=== PATIENT | male | born 1960 | race Caucasian/White ===

== ENCOUNTER 2018-05-19 19:02 | Inpatient (IN) | payer MEDICAID ==
[~2018-05-19] VITALS: Ht 185.4 cm; Wt 81.8 kg
[~2018-05-19 19:02] MED LIST: RISP0.5T74 PO
[2018-05-19 19:51] LABS: INR 1.2 INR; PARTIAL THROMBOPLASTIN TIME 29 SECONDS (22-32)
[2018-05-19 19:54] LABS: BASOPHILS # (AUTO) 0.2 X10'3 (0-0.2); BASOPHILS % (AUTO) 1.2 % (0-1); EOSINOPHILS # (AUTO) 0.1 X10'3 (0-0.9); EOSINOPHILS % (AUTO) 0.5 % (0-6); HEMATOCRIT 36.4 % (42.0-52.0); HEMOGLOBIN 12.6 g/dl (14.0-17.9); LYMPHOCYTES # (AUTO) 1.8 X10'3 (1.1-4.8); LYMPHOCYTES % (AUTO) 13.1 % (21-51); MEAN CORPUSCULAR HEMOGLOBIN 30.9 PG (27.0-31.0); MEAN CORPUSCULAR HGB CONC 34.6 % (33.0-36.5); MEAN CORPUSCULAR VOLUME 89.4 FL (78-98); MEAN PLATELET VOLUME 7.8 FL (7.4-10.4); MONOCYTES # (AUTO) 1.9 X10'3 (0-0.9); MONOCYTES % (AUTO) 13.9 % (2-12); NEUTROPHILS # (AUTO) 9.5 X10'3 (1.8-7.7); NEUTROPHILS % (AUTO) 71.3 % (42-75); PLATELET COUNT 342 X10'3 (140-440); RED BLOOD COUNT 4.07 X10'6 (4.70-6.10); RED CELL DISTRIBUTION WIDTH 13.4 % (11.5-14.5); WHITE BLOOD COUNT 13.4 X10'3 (4.5-11.0)
[2018-05-19 19:57] LABS: ALANINE AMINOTRANSFERASE 21 U/L (12-78); ALBUMIN 3.1 G/DL (3.4-5.0); ALBUMIN/GLOBULIN RATIO 0.7 (1.1-1.5); ALKALINE PHOSPHATASE 63 IU/L (46-116); ANION GAP 13 (8-16); ASPARTATE AMINO TRANSFERASE 20 U/L (10-37); BILIRUBIN,TOTAL 0.4 MG/DL (0.1-1.0); BLOOD UREA NITROGEN 15 MG/DL (7-18); BUN/CREATININE RATIO 16.5 (5.4-32.0); CALCIUM 9.1 MG/DL (8.5-10.1); CHLORIDE 97 MMOL/L (99-107); CREATININE 0.91 MG/DL (0.60-1.10); GLUCOSE 94 MG/DL (70-104); POTASSIUM 3.4 MMOL/L (3.5-5.1); SODIUM 136 MMOL/L (135-145); TOTAL CARBON DIOXIDE 26.4 MMOL/L (24-32); TOTAL PROTEIN 7.8 G/DL (6.4-8.2); eGFR 86 ML/MIN
[2018-05-19] MEDS ORDERED: piperacillin/tazo 3.375gm/50ml 50 ML IV ONE (20:25)
[2018-05-19] MEDS ORDERED: NO HOME MEDS (20:51)
[2018-05-19] MEDS ORDERED: temazepam 15mg capsule PO PRN (21:00)
[2018-05-19] MEDS ORDERED: potassium Cl 20 mEq SR tablet PO PRN ×2 (21:40)
[2018-05-19] MEDS ORDERED: naloxone 0.4 mg/ml inj IV PRN (21:40)
[2018-05-19] MEDS ORDERED: diphenhydrAMINE 25mg capsule PO PRN (21:40)
[2018-05-19] MEDS ORDERED: CADD PCA waste documentation MC PRN (21:40)
[2018-05-19] MEDS ORDERED: potassium Cl 40MEQ/NS 500ml 500 ML IV PRN ×2 (21:40)
[2018-05-19] MEDS ORDERED: HYDROmorphone inj. 0.5 MG/0.5 ML DISP.SYRIN IV PRN ×2 (21:40)
[2018-05-19] MEDS ORDERED: mag hydrox/Alum hydrox/simeth 30ml oral suspension PO PRN (21:40)
[2018-05-19] MEDS ORDERED: magnesium hydroxide 30ml (MOM) UD suspension PO PRN (21:40)
[2018-05-19] MEDS ORDERED: HYDROcodone/acetaminophen 10/325mg tab PO PRN (21:40)
[2018-05-19] MEDS ORDERED: ondansetron/PF 4mg/2ml inj IV PRN (21:40)
[2018-05-19] MEDS ORDERED: bisacodyl 10mg suppository rectal RC PRN (21:40)
[2018-05-19] MEDS ORDERED: acetaminophen 325mg tablet PO PRN ×2 (21:40)
[2018-05-19] MEDS ORDERED: diphenhydrAMINE 50 mg/ml inj IV PRN (21:40)
[2018-05-19] MEDS ORDERED: morphine 4 MG/ML inj SYRINge IV PRN ×2 (21:40)
[2018-05-19] MEDS ORDERED: metoclopramide 5 mg/ml inj IV PRN (21:40)
[2018-05-19 22:11] LABS: HEMOGLOBIN A1C 5.8 % (4.5-6.2)
[2018-05-19 22:18] LABS: MAGNESIUM 1.3 MG/DL (1.5-2.4); PHOSPHORUS 4.3 MG/DL (2.3-4.5)
[2018-05-19] MEDS: nicotine 21mg patch - 24 hr TD SCH (22:19)
[2018-05-19] MEDS: potassium Cl 20mEq in NS 1,000 ML IV SCH (22:19)
[2018-05-19 23:00] VITALS: BP 118/68
[2018-05-20] MEDS: piperacillin/tazo 4.5gm/100ml 100 ML IV SCH ×3 (00:13→15:40)
[2018-05-20] MEDS: HYDROcodone/acetaminophen 5mg/325mg tablet PO PRN (00:22)
[2018-05-20] MEDS ORDERED: magnesium 4gm in 100ml NS 100 ML IV PRN (06:15)
[2018-05-20] MEDS ORDERED: magnesium 1gm/100ml D5W IVPB 100 ML IV PRN (06:15)
[2018-05-20 06:21] LABS: BASOPHILS # (AUTO) 0.1 X10'3 (0-0.2); BASOPHILS % (AUTO) 0.8 % (0-1); EOSINOPHILS # (AUTO) 0.3 X10'3 (0-0.9); EOSINOPHILS % (AUTO) 2.3 % (0-6); HEMATOCRIT 34.8 % (42.0-52.0); HEMOGLOBIN 11.9 g/dl (14.0-17.9); LYMPHOCYTES # (AUTO) 2.1 X10'3 (1.1-4.8); MEAN CORPUSCULAR HEMOGLOBIN 30.7 PG (27.0-31.0); MEAN CORPUSCULAR HGB CONC 34.3 % (33.0-36.5); MEAN CORPUSCULAR VOLUME 89.4 FL (78-98); MEAN PLATELET VOLUME 7.7 FL (7.4-10.4); MONOCYTES # (AUTO) 2.1 X10'3 (0-0.9); MONOCYTES % (AUTO) 15.6 % (2-12); NEUTROPHILS # (AUTO) 8.7 X10'3 (1.8-7.7); NEUTROPHILS % (AUTO) 65.3 % (42-75); PLATELET COUNT 297 X10'3 (140-440); RED BLOOD COUNT 3.89 X10'6 (4.70-6.10); RED CELL DISTRIBUTION WIDTH 13.4 % (11.5-14.5); WHITE BLOOD COUNT 13.4 X10'3 (4.5-11.0)
[2018-05-20 06:31] LABS: ALANINE AMINOTRANSFERASE 21 U/L (12-78); ALBUMIN 2.5 G/DL (3.4-5.0); ALBUMIN/GLOBULIN RATIO 0.6 (1.1-1.5); ALKALINE PHOSPHATASE 52 IU/L (46-116); ANION GAP 6 (8-16); ASPARTATE AMINO TRANSFERASE 13 U/L (10-37); BILIRUBIN,TOTAL 0.6 MG/DL (0.1-1.0); BLOOD UREA NITROGEN 10 MG/DL (7-18); BUN/CREATININE RATIO 12.7 (5.4-32.0); CALCIUM 8.7 MG/DL (8.5-10.1); CHLORIDE 103 MMOL/L (99-107); CREATININE 0.79 MG/DL (0.60-1.10); GLUCOSE 109 MG/DL (70-104); POTASSIUM 4.4 MMOL/L (3.5-5.1); SODIUM 137 MMOL/L (135-145); TOTAL CARBON DIOXIDE 28.1 MMOL/L (24-32); TOTAL PROTEIN 6.6 G/DL (6.4-8.2); eGFR > 90 ML/MIN
[2018-05-20 07:03] VITALS: BP 116/64
[2018-05-20 07:24] LABS: PLATELET ESTIMATE NORMAL; TOTAL CELLS COUNTED 100
[2018-05-20] MEDS: pantoprazole 40mg Tablet.DR PO SCH (07:25)
[2018-05-20] MEDS: docusate sod 100mg capsule PO SCH ×2 (07:28→20:00)
[2018-05-20] MEDS: K and/or MAG REPLACEMENT MC SCH (07:28)
[2018-05-20] MEDS: nicotine 21mg patch - 24 hr TD SCH (07:28)
[2018-05-20] MEDS: potassium Cl 20mEq in NS 1,000 ML IV SCH ×2 (07:39→17:28)
[2018-05-20] MEDS ORDERED: vancomycin/NS 1 GM ADD-VANTAGE 250 ML IV SCH (08:00)
[2018-05-20] MEDS: vancomycin inj 1,250 MG in normal saline 250ml IV soln 250 ML IV SCH ×2 (09:36→17:28)
[2018-05-20] MEDS ORDERED: magnesium Cl slow-release 64mg tablet PO PRN (11:35)
[2018-05-20 11:36] VITALS: BP 89/49
[2018-05-20 14:57] LABS: CLARITY,URINE CLEAR (Clear); COLOR,URINE YELLOW (Yellow); GLUCOSE, URINE NEGATIVE (Neg); KETONES,URINE NEGATIVE (Neg); LEUKOCYTE ESTERASE ,URINE NEGATIVE (Neg); NITRITES, URINE NEGATIVE (Neg); OCCULT BLOOD,URINE NEGATIVE (Neg); PROTEIN,URINE NEGATIVE (Neg)
[2018-05-20 14:58] LABS: UA COLLECTION TYPE VOIDED
[2018-05-20 15:03] LABS: URINE AMPHETAMINE SCREEN NEGATIVE (Neg); URINE BARBITUATE SCREEN NEGATIVE (Neg); URINE BENZODIAZEPINES SCREEN NEGATIVE (Neg); URINE CANNABINOID SCREEN NEGATIVE (Neg); URINE COCAINE SCREEN NEGATIVE (Neg); URINE METHADONE SCREEN NEGATIVE (Neg); URINE OPIATE SCREEN POSITIVE (Neg); URINE PHENCYCLIDINE SCREEN NEGATIVE (Neg)
[2018-05-20] MEDS: magnesium Cl slow-release 64mg tablet PO PRN (16:03)
[2018-05-20 20:00] VITALS: BP 114/57
[2018-05-20] MEDS: heparin, porcine 5000 units/ml vial SQ SCH (20:43)
[2018-05-20] MEDS: lactobacillus rhamnosus 10,000 MMU CELLS/CAPSULE PO SCH (20:43)
[2018-05-21] VITALS: BP 99/62
[2018-05-21] MEDS: piperacillin/tazo 4.5gm/100ml 100 ML IV SCH ×4 (00:09→23:44)
[2018-05-21] MEDS: vancomycin inj 1,250 MG in normal saline 250ml IV soln 250 ML IV SCH ×2 (01:47→10:18)
[2018-05-21] MEDS: potassium Cl 20mEq in NS 1,000 ML IV SCH ×3 (03:39→23:39)
[2018-05-21] MEDS: magnesium Cl slow-release 64mg tablet PO PRN ×2 (04:28→07:52)
[2018-05-21 05:13] LABS: BASOPHILS # (AUTO) 0.1 X10'3 (0-0.2); BASOPHILS % (AUTO) 0.6 % (0-1); EOSINOPHILS # (AUTO) 0.4 X10'3 (0-0.9); EOSINOPHILS % (AUTO) 3.3 % (0-6); HEMATOCRIT 35.2 % (42.0-52.0); HEMOGLOBIN 12.1 g/dl (14.0-17.9); LYMPHOCYTES # (AUTO) 1.7 X10'3 (1.1-4.8); LYMPHOCYTES % (AUTO) 13.7 % (21-51); MEAN CORPUSCULAR HEMOGLOBIN 30.6 PG (27.0-31.0); MEAN CORPUSCULAR HGB CONC 34.3 % (33.0-36.5); MEAN CORPUSCULAR VOLUME 89.2 FL (78-98); MEAN PLATELET VOLUME 7.4 FL (7.4-10.4); MONOCYTES # (AUTO) 1.4 X10'3 (0-0.9); MONOCYTES % (AUTO) 10.9 % (2-12); NEUTROPHILS # (AUTO) 8.9 X10'3 (1.8-7.7); NEUTROPHILS % (AUTO) 71.5 % (42-75); PLATELET COUNT 313 X10'3 (140-440); RED BLOOD COUNT 3.95 X10'6 (4.70-6.10); RED CELL DISTRIBUTION WIDTH 13.6 % (11.5-14.5); WHITE BLOOD COUNT 12.4 X10'3 (4.5-11.0)
[2018-05-21 05:36] LABS: ALANINE AMINOTRANSFERASE 16 U/L (12-78); ALBUMIN 2.3 G/DL (3.4-5.0); ALBUMIN/GLOBULIN RATIO 0.5 (1.1-1.5); ALKALINE PHOSPHATASE 48 IU/L (46-116); ANION GAP 8 (8-16); ASPARTATE AMINO TRANSFERASE 12 U/L (10-37); BILIRUBIN,TOTAL 0.3 MG/DL (0.1-1.0); BLOOD UREA NITROGEN 8 MG/DL (7-18); BUN/CREATININE RATIO 12.1 (5.4-32.0); CALCIUM 8.3 MG/DL (8.5-10.1); CHLORIDE 103 MMOL/L (99-107); CREATININE 0.66 MG/DL (0.60-1.10); GLUCOSE 117 MG/DL (70-104); MAGNESIUM 1.4 MG/DL (1.5-2.4); POTASSIUM 3.8 MMOL/L (3.5-5.1); SODIUM 138 MMOL/L (135-145); TOTAL CARBON DIOXIDE 26.7 MMOL/L (24-32); TOTAL PROTEIN 6.5 G/DL (6.4-8.2); eGFR > 90 ML/MIN
[2018-05-21] MEDS: lactobacillus rhamnosus 10,000 MMU CELLS/CAPSULE PO SCH ×2 (07:52→20:10)
[2018-05-21] MEDS: nicotine 21mg patch - 24 hr TD SCH (07:52)
[2018-05-21] MEDS: docusate sod 100mg capsule PO SCH ×2 (07:52→20:00)
[2018-05-21] MEDS: pantoprazole 40mg Tablet.DR PO SCH (07:52)
[2018-05-21] MEDS: heparin, porcine 5000 units/ml vial SQ SCH ×2 (07:53→20:09)
[2018-05-21] MEDS: K and/or MAG REPLACEMENT MC SCH (08:01)
[2018-05-21] MEDS ORDERED: VANCOMYCIN LEVEL IV NR (08:30)
[2018-05-21 10:53] VITALS: BP 110/62
[2018-05-21 12:25] VITALS: BP 117/68
[2018-05-21] MEDS ORDERED: gadopentetate dimeglumine 7.5 MMOL/15 ML syringe ONE (16:16)
[2018-05-21 18:00] VITALS: BP 132/76
[2018-05-22] VITALS: BP 114/65
[2018-05-22 05:09] LABS: BASOPHILS # (AUTO) 0.1 X10'3 (0-0.2); BASOPHILS % (AUTO) 0.4 % (0-1); EOSINOPHILS # (AUTO) 0.3 X10'3 (0-0.9); EOSINOPHILS % (AUTO) 2.6 % (0-6); HEMATOCRIT 35.4 % (42.0-52.0); HEMOGLOBIN 12.3 g/dl (14.0-17.9); LYMPHOCYTES % (AUTO) 16.5 % (21-51); MEAN CORPUSCULAR HEMOGLOBIN 30.9 PG (27.0-31.0); MEAN CORPUSCULAR HGB CONC 34.6 % (33.0-36.5); MEAN CORPUSCULAR VOLUME 89.1 FL (78-98); MEAN PLATELET VOLUME 7.4 FL (7.4-10.4); MONOCYTES # (AUTO) 1.3 X10'3 (0-0.9); MONOCYTES % (AUTO) 10.4 % (2-12); NEUTROPHILS # (AUTO) 8.5 X10'3 (1.8-7.7); NEUTROPHILS % (AUTO) 70.1 % (42-75); PLATELET COUNT 348 X10'3 (140-440); RED BLOOD COUNT 3.98 X10'6 (4.70-6.10); WHITE BLOOD COUNT 12.2 X10'3 (4.5-11.0)
[2018-05-22 05:30] LABS: ALANINE AMINOTRANSFERASE 12 U/L (12-78); ALBUMIN 2.3 G/DL (3.4-5.0); ALBUMIN/GLOBULIN RATIO 0.5 (1.1-1.5); ALKALINE PHOSPHATASE 46 IU/L (46-116); ANION GAP 8 (8-16); ASPARTATE AMINO TRANSFERASE 11 U/L (10-37); BILIRUBIN,TOTAL 0.3 MG/DL (0.1-1.0); BLOOD UREA NITROGEN 6 MG/DL (7-18); CALCIUM 8.9 MG/DL (8.5-10.1); CHLORIDE 104 MMOL/L (99-107); CREATININE 0.67 MG/DL (0.60-1.10); GLUCOSE 101 MG/DL (70-104); MAGNESIUM 1.5 MG/DL (1.5-2.4); POTASSIUM 3.9 MMOL/L (3.5-5.1); SODIUM 140 MMOL/L (135-145); TOTAL CARBON DIOXIDE 27.8 MMOL/L (24-32); TOTAL PROTEIN 6.7 G/DL (6.4-8.2); eGFR > 90 ML/MIN
[2018-05-22] MEDS: lactobacillus rhamnosus 10,000 MMU CELLS/CAPSULE PO SCH ×2 (07:35→19:36)
[2018-05-22] MEDS: pantoprazole 40mg Tablet.DR PO SCH (07:35)
[2018-05-22] MEDS: nicotine 21mg patch - 24 hr TD SCH (07:35)
[2018-05-22] MEDS: piperacillin/tazo 4.5gm/100ml 100 ML IV SCH ×3 (07:35→23:38)
[2018-05-22 07:48] VITALS: BP 113/68
[2018-05-22] MEDS: docusate sod 100mg capsule PO SCH ×2 (08:00→19:37)
[2018-05-22] MEDS: heparin, porcine 5000 units/ml vial SQ SCH ×2 (08:00→19:37)
[2018-05-22] MEDS: K and/or MAG REPLACEMENT MC SCH (08:00)
[2018-05-22] MEDS: potassium Cl 20mEq in NS 1,000 ML IV SCH ×2 (09:39→19:36)
[2018-05-22] MEDS ORDERED: VANCOMYCIN LEVEL IV NR (16:30)
[2018-05-22 18:00] VITALS: BP 125/70
[2018-05-23] VITALS: BP 116/68
[2018-05-23 01:13] LABS: ALANINE AMINOTRANSFERASE 13 U/L (12-78); ALBUMIN 2.2 G/DL (3.4-5.0); ALBUMIN/GLOBULIN RATIO 0.5 (1.1-1.5); ALKALINE PHOSPHATASE 47 IU/L (46-116); ANION GAP 6 (8-16); ASPARTATE AMINO TRANSFERASE 11 U/L (10-37); BILIRUBIN,TOTAL 0.2 MG/DL (0.1-1.0); BLOOD UREA NITROGEN 8 MG/DL (7-18); BUN/CREATININE RATIO 12.3 (5.4-32.0); CALCIUM 8.6 MG/DL (8.5-10.1); CHLORIDE 105 MMOL/L (99-107); CREATININE 0.65 MG/DL (0.60-1.10); GLUCOSE 143 MG/DL (70-104); MAGNESIUM 1.5 MG/DL (1.5-2.4); POTASSIUM 3.5 MMOL/L (3.5-5.1); SODIUM 140 MMOL/L (135-145); TOTAL CARBON DIOXIDE 28.8 MMOL/L (24-32); TOTAL PROTEIN 6.4 G/DL (6.4-8.2); eGFR > 90 ML/MIN
[2018-05-23 01:17] LABS: VANCOMYCIN,TROUGH 21.3 UG/ML (6.0-14.0)
[2018-05-23 02:04] LABS: BASOPHILS % (AUTO) 0.3 % (0-1); EOSINOPHILS # (AUTO) 0.5 X10'3 (0-0.9); EOSINOPHILS % (AUTO) 4.2 % (0-6); HEMATOCRIT 33.8 % (42.0-52.0); HEMOGLOBIN 11.6 g/dl (14.0-17.9); LYMPHOCYTES # (AUTO) 2.1 X10'3 (1.1-4.8); LYMPHOCYTES % (AUTO) 19.3 % (21-51); MEAN CORPUSCULAR HEMOGLOBIN 31.3 PG (27.0-31.0); MEAN CORPUSCULAR HGB CONC 34.4 % (33.0-36.5); MEAN PLATELET VOLUME 7.8 FL (7.4-10.4); MONOCYTES # (AUTO) 1.1 X10'3 (0-0.9); MONOCYTES % (AUTO) 10.2 % (2-12); NEUTROPHILS # (AUTO) 7.1 X10'3 (1.8-7.7); PLATELET COUNT 354 X10'3 (140-440); RED BLOOD COUNT 3.71 X10'6 (4.70-6.10); RED CELL DISTRIBUTION WIDTH 13.4 % (11.5-14.5); WHITE BLOOD COUNT 10.8 X10'3 (4.5-11.0)
[2018-05-23] MEDS: potassium Cl 20mEq in NS 1,000 ML IV SCH ×2 (04:35→15:39)
[2018-05-23 07:00] VITALS: BP 124/48
[2018-05-23] MEDS: heparin, porcine 5000 units/ml vial SQ SCH ×2 (08:00→20:32)
[2018-05-23] MEDS: K and/or MAG REPLACEMENT MC SCH (08:00)
[2018-05-23] MEDS: docusate sod 100mg capsule PO SCH ×2 (09:05→20:00)
[2018-05-23] MEDS: lactobacillus rhamnosus 10,000 MMU CELLS/CAPSULE PO SCH ×2 (09:05→20:31)
[2018-05-23] MEDS: pantoprazole 40mg Tablet.DR PO SCH (09:05)
[2018-05-23] MEDS: nicotine 21mg patch - 24 hr TD SCH (09:06)
[2018-05-23] MEDS: piperacillin/tazo 4.5gm/100ml 100 ML IV SCH ×3 (09:06→23:43)
[2018-05-23] MEDS: vancomycin inj 1,250 MG in normal saline 250ml IV soln 250 ML IV SCH ×2 (09:54→17:43)
[2018-05-23 12:00] VITALS: BP 175/68
[2018-05-23 18:30] VITALS: BP 143/71
[2018-05-23] MEDS: HYDROcodone/acetaminophen 5mg/325mg tablet PO PRN (20:31)
[2018-05-23 23:00] VITALS: BP 115/74
[2018-05-24] MEDS: vancomycin inj 1,250 MG in normal saline 250ml IV soln 250 ML IV SCH ×2 (00:53→09:00)
[2018-05-24 05:21] LABS: BASOPHILS % (AUTO) 0.4 % (0-1); EOSINOPHILS # (AUTO) 0.5 X10'3 (0-0.9); EOSINOPHILS % (AUTO) 4.2 % (0-6); HEMATOCRIT 36.8 % (42.0-52.0); HEMOGLOBIN 12.4 g/dl (14.0-17.9); LYMPHOCYTES # (AUTO) 1.9 X10'3 (1.1-4.8); LYMPHOCYTES % (AUTO) 17.9 % (21-51); MEAN CORPUSCULAR HEMOGLOBIN 30.2 PG (27.0-31.0); MEAN CORPUSCULAR HGB CONC 33.8 % (33.0-36.5); MEAN CORPUSCULAR VOLUME 89.5 FL (78-98); MEAN PLATELET VOLUME 7.4 FL (7.4-10.4); MONOCYTES # (AUTO) 1.3 X10'3 (0-0.9); NEUTROPHILS # (AUTO) 7.1 X10'3 (1.8-7.7); NEUTROPHILS % (AUTO) 65.5 % (42-75); PLATELET COUNT 392 X10'3 (140-440); RED BLOOD COUNT 4.11 X10'6 (4.70-6.10); RED CELL DISTRIBUTION WIDTH 13.5 % (11.5-14.5); WHITE BLOOD COUNT 10.9 X10'3 (4.5-11.0)
[2018-05-24] MEDS: potassium Cl 20mEq in NS 1,000 ML IV SCH ×3 (05:26→19:53)
[2018-05-24] MEDS: HYDROcodone/acetaminophen 5mg/325mg tablet PO PRN ×2 (05:35→19:53)
[2018-05-24 05:49] LABS: ALANINE AMINOTRANSFERASE 26 U/L (12-78); ALBUMIN 2.4 G/DL (3.4-5.0); ALBUMIN/GLOBULIN RATIO 0.5 (1.1-1.5); ALKALINE PHOSPHATASE 44 IU/L (46-116); ANION GAP 7 (8-16); ASPARTATE AMINO TRANSFERASE 16 U/L (10-37); BILIRUBIN,TOTAL 0.3 MG/DL (0.1-1.0); BLOOD UREA NITROGEN 10 MG/DL (7-18); BUN/CREATININE RATIO 13.5 (5.4-32.0); CALCIUM 8.9 MG/DL (8.5-10.1); CHLORIDE 105 MMOL/L (99-107); CREATININE 0.74 MG/DL (0.60-1.10); GLUCOSE 95 MG/DL (70-104); MAGNESIUM 1.5 MG/DL (1.5-2.4); POTASSIUM 3.8 MMOL/L (3.5-5.1); SODIUM 141 MMOL/L (135-145); TOTAL CARBON DIOXIDE 28.7 MMOL/L (24-32); TOTAL PROTEIN 6.9 G/DL (6.4-8.2); eGFR > 90 ML/MIN
[2018-05-24] MEDS: pantoprazole 40mg Tablet.DR PO SCH (07:14)
[2018-05-24] MEDS: piperacillin/tazo 4.5gm/100ml 100 ML IV SCH (07:14)
[2018-05-24] MEDS: lactobacillus rhamnosus 10,000 MMU CELLS/CAPSULE PO SCH ×2 (07:15→21:06)
[2018-05-24] MEDS: heparin, porcine 5000 units/ml vial SQ SCH ×2 (07:15→21:03)
[2018-05-24] MEDS: docusate sod 100mg capsule PO SCH ×2 (07:15→20:00)
[2018-05-24] MEDS: nicotine 21mg patch - 24 hr TD SCH (07:16)
[2018-05-24 08:00] VITALS: BP 120/71
[2018-05-24] MEDS: K and/or MAG REPLACEMENT MC SCH (08:00)
[2018-05-24] MEDS ORDERED: VANCOMYCIN LEVEL IV ONE (08:30)
[2018-05-24] MEDS ORDERED: vancomycin/NS 1 GM ADD-VANTAGE 250 ML IV SCH (09:04)
[2018-05-24 11:00] VITALS: BP 140/76
[2018-05-24 13:49] LABS: HIV ANTIBODY 1&2 RAPID NON-REACTIVE (Neg)
[2018-05-24 20:00] VITALS: BP 119/69
[2018-05-25] VITALS: BP 109/62
[2018-05-25 07:00] VITALS: BP 128/72
[2018-05-25] MEDS: potassium Cl 20mEq in NS 1,000 ML IV SCH (07:39)
[2018-05-25] MEDS: pantoprazole 40mg Tablet.DR PO SCH (08:00)
[2018-05-25] MEDS ORDERED: CefTRIAXone 2gm/D5W 50ml 50 ML IV SCH (08:00)
[2018-05-25] MEDS: docusate sod 100mg capsule PO SCH (08:00)
[2018-05-25] MEDS: K and/or MAG REPLACEMENT MC SCH (08:00)
[2018-05-25] MEDS: nicotine 21mg patch - 24 hr TD SCH (08:01)
[2018-05-25] MEDS: lactobacillus rhamnosus 10,000 MMU CELLS/CAPSULE PO SCH (08:02)
[2018-05-25] MEDS: heparin, porcine 5000 units/ml vial SQ SCH (08:03)
[2018-05-25] MEDS ORDERED: VANCOMYCIN LEVEL IV ONE (08:30)
[2018-05-25 11:00] VITALS: BP 126/68
[2018-05-26 08:48] LABS: HBSAG SCREEN Negative (Negative); HEP A AB, IGM Negative (Negative); HEP B CORE AB, IGM Negative (Negative); HEPATITIS C ANTIBODY <0.1 s/co ratio (0.0-0.9)
== END 2018-05-25 14:47 | disposition left against medical advice (07) | DRG 344 ==
LOC: ER 19:03 → ED HOLD 21:39 → EDBEDREQ 22:27 → SUR 3N 22:45
PROVIDERS: ADMIT Family Medicine; ATTEND Family Medicine
DX: M86.172 Other acute osteomyelitis, left ankle and foot (principal); L03.116 Cellulitis of left lower limb; E83.42 Hypomagnesemia; F43.10 Post-traumatic stress disorder, unspecified; L02.612 Cutaneous abscess of left foot; F10.10 Alcohol abuse, uncomplicated; Z53.21 Procedure and treatment not carried out due to patient leaving prior to being seen by health care provider; B96.1 Klebsiella pneumoniae [K. pneumoniae] as the cause of diseases classified elsewhere; B96.89 Other specified bacterial agents as the cause of diseases classified elsewhere; B95.61 Methicillin susceptible Staphylococcus aureus infection as the cause of diseases classified elsewhere; E87.6 Hypokalemia; F12.10 Cannabis abuse, uncomplicated; Z59.0 Homelessness; Z56.0 Unemployment, unspecified; Z91.19 Patient's noncompliance with other medical treatment and regimen; Z89.421 Acquired absence of other right toe(s); Z71.41 Alcohol abuse counseling and surveillance of alcoholic; Z71.6 Tobacco abuse counseling; Z72.0 Tobacco use
CPT/HCPCS: 36415; 73630; 80053; 80074; 80202; 80305; 81003; 83036; 83605; 83735; 83880; 84100; 84145; 85025; 85610; 85651; 85730; 86703; 87040; 87070; 87077; 87186; 93005; 96365; 99285; A4649; A6196; A6209; A6446; A6449; A9579; J0696; J1644; J2543; J3370; J7030

== ENCOUNTER 2019-01-15 17:53 | Inpatient (IN) | payer MEDICAID ==
[~2019-01-15] VITALS: Ht 185.4 cm; Wt 112.0 kg
[2019-01-15] MEDS ORDERED: acetaminophen 325mg tablet PO STA (18:49)
[2019-01-15] MEDS ORDERED: normal saline 1000ml 1,000 ML IV ONE ×3 (19:05→19:20)
[2019-01-15 19:58] LABS: BASOPHILS # (AUTO) 0.1 X10'3 (0-0.2); BASOPHILS % (AUTO) 0.3 % (0-1); EOSINOPHILS % (AUTO) 0 % (0-6); HEMATOCRIT 30.7 % (42.0-52.0); HEMOGLOBIN 10.3 g/dl (14.0-17.9); LYMPHOCYTES # (AUTO) 0.9 X10'3 (1.1-4.8); LYMPHOCYTES % (AUTO) 3.6 % (21-51); MEAN CORPUSCULAR HEMOGLOBIN 28.8 PG (27.0-31.0); MEAN CORPUSCULAR HGB CONC 33.4 g/dL (33.0-36.5); MEAN CORPUSCULAR VOLUME 86.1 FL (78-98); MEAN PLATELET VOLUME 7.1 FL (7.4-10.4); MONOCYTES # (AUTO) 1.5 X10'3 (0-0.9); MONOCYTES % (AUTO) 6.2 % (2-12); NEUTROPHILS % (AUTO) 89.9 % (42-75); PLATELET COUNT 483 X10'3 (140-440); RED BLOOD COUNT 3.57 X10'6 (4.70-6.10); RED CELL DISTRIBUTION WIDTH 13.5 % (11.5-14.5); WHITE BLOOD COUNT 24.5 X10'3 (4.5-11.0)
[2019-01-15 20:01] LABS: INR 1.5 INR; PARTIAL THROMBOPLASTIN TIME 29 SECONDS (22-32); PROTHROMBIN TIME 14.8 SECONDS (9.0-12.0)
[2019-01-15 20:02] LABS: ALANINE AMINOTRANSFERASE 25 U/L (12-78); ALBUMIN 1.7 G/DL (3.4-5.0); ALBUMIN/GLOBULIN RATIO 0.3 (1.1-1.5); ALKALINE PHOSPHATASE 75 IU/L (46-116); ANION GAP 10 (8-16); ASPARTATE AMINO TRANSFERASE 38 U/L (10-37); BILIRUBIN,TOTAL 0.4 MG/DL (0.1-1.0); BLOOD UREA NITROGEN 24 MG/DL (7-18); BUN/CREATININE RATIO 29.3 (5.4-32.0); CALCIUM 8.1 MG/DL (8.5-10.1); CHLORIDE 104 MMOL/L (99-107); CREATININE 0.82 MG/DL (0.60-1.10); GLUCOSE 120 MG/DL (70-104); POTASSIUM 3.8 MMOL/L (3.5-5.1); SODIUM 138 MMOL/L (135-145); TOTAL CARBON DIOXIDE 24.5 MMOL/L (24-32); TOTAL PROTEIN 6.8 G/DL (6.4-8.2); eGFR > 90 ML/MIN
[2019-01-15] MEDS ORDERED: vancomycin/NS 1 GM ADD-VANTAGE 250 ML IV ONE (20:25)
[2019-01-15] MEDS ORDERED: piperacillin/tazo 3.375gm/50ml 50 ML IV ONE (20:25)
[2019-01-15] MEDS ORDERED: temazepam 15mg capsule PO PRN (21:00)
[2019-01-15] MEDS ORDERED: haloperidol 5mg tablet PO PRN (21:25)
[2019-01-15] MEDS ORDERED: magnesium hydroxide 30ml (MOM) UD suspension PO PRN (21:25)
[2019-01-15] MEDS ORDERED: haloperidol lactate 5mg/ml inj IM PRN (21:25)
[2019-01-15] MEDS ORDERED: ondansetron/PF 4mg/2ml inj IV PRN (21:25)
[2019-01-15] MEDS ORDERED: mag hydrox/Alum hydrox/simeth 30ml oral suspension PO PRN (21:25)
[2019-01-15] MEDS ORDERED: LORazepam 2 mg/ml vial IV PRN (21:25)
[2019-01-15] MEDS ORDERED: acetaminophen 325mg tablet PO PRN ×2 (21:25)
[2019-01-15] MEDS ORDERED: LORazepam 1 MG tablet PO PRN (21:25)
[2019-01-15] MEDS ORDERED: iohexol 300mg/ml 100ml inj. ONE (21:30)
[2019-01-15] MEDS: normal saline 1000ml 1,000 ML IV SCH (22:21)
[2019-01-16] VITALS (17 sets, daily range): BP systolic 86–104; BP diastolic 44–58
[2019-01-16 00:46] LABS: PLATELET ESTIMATE INCREASED; TOTAL CELLS COUNTED 100
[2019-01-16] MEDS: piperacillin/tazo 4.5gm/100ml 100 ML IV SCH ×3 (04:18→19:41)
[2019-01-16 06:13] LABS: CLARITY,URINE CLEAR (Clear); GLUCOSE, URINE NEGATIVE (Neg); KETONES,URINE NEGATIVE (Neg); LEUKOCYTE ESTERASE ,URINE NEGATIVE (Neg); NITRITES, URINE NEGATIVE (Neg); OCCULT BLOOD,URINE MODERATE (Neg); PH,URINE 5.5 (4.8-8.0); PROTEIN,URINE 30 mg/dl (Neg)
[2019-01-16 06:19] LABS: COLOR,URINE DARK YELLOW (Yellow); UA COLLECTION TYPE CLN CATCH MIDSTREAM
[2019-01-16 06:21] LABS: BACTERIA,URINE FEW /HPF (Neg); MUCUS STRANDS FEW /LPF (Neg); RBC,URINE 0-2 /HPF (0-2); SQUAMOUS EPITHELIAL CELL,UR FEW /LPF (FEW); WBC,URINE 0-4 /HPF (0-4)
--- NOTE | 2019-01-16 07:45 | NUR ---
RECEIVED TELEPHONE REPORT FRJUAN JACKSON RN. RECEIVED PT FROM ER AARON MAYER. AVEL PAIN EXCEPT LEVEL"3-4" BILAT FEET. 2 RN SKIN CHECK DONE, PICTURES TAKEN. DENIES SOS. DIZZINESS. NS AT 100ML/HOUR BEGAN ALONG WITH VANCOMYCIN ABX.
[2019-01-16] MEDS: enoxaparin 40mg/0.4ml syringe SUBCUT SCH (08:00)
[2019-01-16] MEDS ORDERED: vancomycin/NS 1 GM ADD-VANTAGE 250 ML IV SCH (08:00)
[2019-01-16] MEDS: normal saline 1000ml 1,000 ML IV SCH ×2 (08:01→17:25)
[2019-01-16] MEDS ORDERED: ringers solution, lacted 1,000 ML IV SCH (09:22)
[2019-01-16] MEDS ORDERED: ondansetron/PF 4mg/2ml inj IV PRN (09:25)
[2019-01-16] MEDS ORDERED: proCHLORperazine 10 MG/2 ml inj IV PRN (09:25)
[2019-01-16] MEDS ORDERED: meperidine/PF 25mg/ml syringe IV PRN ×3 (09:25)
[2019-01-16] MEDS ORDERED: morphine 4 MG/ML inj SYRINge IV PRN ×2 (09:25)
[2019-01-16 09:30] LABS: BASOPHILS # (AUTO) 0.1 X10'3 (0-0.2); BASOPHILS % (AUTO) 0.5 % (0-1); EOSINOPHILS # (AUTO) 0.1 X10'3 (0-0.9); EOSINOPHILS % (AUTO) 0.3 % (0-6); HEMATOCRIT 32.2 % (42.0-52.0); HEMOGLOBIN 10.6 g/dl (14.0-17.9); LYMPHOCYTES # (AUTO) 1.3 X10'3 (1.1-4.8); LYMPHOCYTES % (AUTO) 5.7 % (21-51); MEAN CORPUSCULAR HEMOGLOBIN 28.6 PG (27.0-31.0); MEAN CORPUSCULAR HGB CONC 32.9 g/dL (33.0-36.5); MEAN CORPUSCULAR VOLUME 86.8 FL (78-98); MEAN PLATELET VOLUME 7.2 FL (7.4-10.4); MONOCYTES # (AUTO) 1.2 X10'3 (0-0.9); MONOCYTES % (AUTO) 5.4 % (2-12); NEUTROPHILS # (AUTO) 19.3 X10'3 (1.8-7.7); NEUTROPHILS % (AUTO) 88.1 % (42-75); PLATELET COUNT 494 X10'3 (140-440); RED BLOOD COUNT 3.71 X10'6 (4.70-6.10); RED CELL DISTRIBUTION WIDTH 13.7 % (11.5-14.5)
[2019-01-16] MEDS ORDERED: LIDOcaine 1% 30ml preserv. free vial ONE (09:31)
[2019-01-16] MEDS ORDERED: midazolam 2 mg/2 ml injection ONE (09:34)
[2019-01-16] MEDS ORDERED: ketamine 10mg/ml 20ml inj ONE (09:34)
[2019-01-16] MEDS ORDERED: fentaNYL/PF 50MCG/1 ML 2ML syringe ONE (09:34)
[2019-01-16] MEDS ORDERED: propofol inj 20 ML IV ONE (09:38)
[2019-01-16] MEDS ORDERED: LIDOcaine 2% (20mg/ml) 5ml vial ONE (09:38)
[2019-01-16 09:42] LABS: ALBUMIN 1.6 G/DL (3.4-5.0); ANION GAP 9 (8-16); BLOOD UREA NITROGEN 19 MG/DL (7-18); BUN/CREATININE RATIO 24.7 (5.4-32.0); CALCIUM 8.3 MG/DL (8.5-10.1); CHLORIDE 104 MMOL/L (99-107); CREATININE 0.77 MG/DL (0.60-1.10); GLUCOSE 88 MG/DL (70-104); POTASSIUM 3.7 MMOL/L (3.5-5.1); SODIUM 138 MMOL/L (135-145); eGFR > 90 ML/MIN
--- NOTE | 2019-01-16 09:55 | NUR ---
Received from OR via BED, accompanied by Anesthesiologist UCHE and report given by Anesthesiolgist. PT AWAKE AND ALERT, OXYGENATING WELL ON ROOM AIR. NO RESP DISTRESS NOTED. DENIES NAUSEA OR PAIN. BULKY DSG TO R FOOT COVERED WITH DIANELYS WRAP, CDI. VSS.
--- NOTE | 2019-01-16 10:45 | NUR ---
Report called to receiving nurse. Transferred via BED Belongings IN PT ROOM. DENIES PAIN. VSS. TOLERATING PO FLUIDS WELL. TRANSFERRED BACK TO PCU IN STABLE CONDITION. Special Issues communicated to receiving nurse.
--- NOTE | 2019-01-16 10:50 | NUR ---
RETURNED FROM RR VIA BED. VS STABLE. DENIES PAIN, DIZZINESS, SOB. DIANELYS WRAP DRESSING RIGHT FOOT CDI. GIVEN WATER, ABLE TO DRINK WITHOUT DIFFICULTY. ALSO GIVE COFFEE PER REQUEST. ORDERED LATE BREAKFAST OR EARLY LUNCH.
[2019-01-16] MEDS ORDERED: NO HOME MEDS (11:00)
[2019-01-16] MEDS: thiamine 100mg tablet PO SCH (11:42)
[2019-01-16] MEDS: folic acid 1mg tablet PO SCH (11:42)
--- NOTE | 2019-01-16 14:23 | NUR ---
PAGED PT: 3013B, NEW POST OP ORDERS FOR PT EVAL AND TREAT, NWB RIGHT FOOT. JAMISON [id number]. TY
[2019-01-16] MEDS: HYDROcodone/acetaminophen 5mg/325mg tablet PO PRN (15:54)
--- NOTE | 2019-01-16 18:13 | NUR ---
Problems reprioritized. Patient report given, questions answered & plan of care reviewed with patrick peres.
--- NOTE | 2019-01-16 18:20 | NUR ---
Patient in room PCU 3013. I have received report from ABHINAV Jarrell and had the opportunity to ask questions and assume patient care.
[2019-01-16] MEDS: lactobacillus rhamnosus 10,000 MMU CELLS/CAPSULE PO SCH (19:41)
[2019-01-16] MEDS: HYDROcodone/acetaminophen 10/325mg tab PO PRN (20:11)
[2019-01-17 03:00] VITALS: BP 114/58
[2019-01-17] MEDS: piperacillin/tazo 4.5gm/100ml 100 ML IV SCH ×3 (03:58→19:15)
[2019-01-17] MEDS: normal saline 1000ml 1,000 ML IV SCH ×3 (03:59→19:21)
--- NOTE | 2019-01-17 04:00 | NUR ---
Pt. was getting clean and change before morning shift when my helper saw a head lice crowing on the bed. Charge nurse was notified.She called the doctor and got the order from pharmacy.Pt. was shaved from the head to toe,bes bath was given ,new sheets and he was treated with the cream.We will following with pt. care.
[2019-01-17] MEDS: HYDROcodone/acetaminophen 10/325mg tab PO PRN ×2 (04:03→12:06)
[2019-01-17] MEDS ORDERED: Permethrin Cream 60gm TP ONE (04:30)
[2019-01-17 06:00] VITALS: BP 103/57
--- NOTE | 2019-01-17 06:10 | NUR ---
Patient in room PCU 3013. I have received report from Melly LA and had the opportunity to ask questions and assume patient care.
--- NOTE | 2019-01-17 06:28 | NUR ---
Problems reprioritized. Patient report given, questions answered & plan of care reviewed with WeslyRN and ABHINAV Hunter.
--- NOTE | 2019-01-17 06:30 | NUR ---
Patient in room PCU 3013. I have received report from ABHINAV AGUIRRE and had the opportunity to ask questions and assume patient care.
[2019-01-17 06:47] LABS: ALBUMIN 1.5 G/DL (3.4-5.0); ANION GAP 6 (8-16); BLOOD UREA NITROGEN 24 MG/DL (7-18); CALCIUM 8.5 MG/DL (8.5-10.1); CHLORIDE 106 MMOL/L (99-107); CREATININE 0.96 MG/DL (0.60-1.10); GLUCOSE 99 MG/DL (70-104); POTASSIUM 3.6 MMOL/L (3.5-5.1); SODIUM 139 MMOL/L (135-145); TOTAL CARBON DIOXIDE 26.7 MMOL/L (24-32); eGFR 80 ML/MIN
[2019-01-17 06:52] LABS: BASOPHILS # (AUTO) 0.1 X10'3 (0-0.2); BASOPHILS % (AUTO) 0.8 % (0-1); EOSINOPHILS # (AUTO) 0.2 X10'3 (0-0.9); EOSINOPHILS % (AUTO) 1.1 % (0-6); HEMATOCRIT 31.9 % (42.0-52.0); HEMOGLOBIN 10.4 g/dl (14.0-17.9); LYMPHOCYTES # (AUTO) 1.8 X10'3 (1.1-4.8); LYMPHOCYTES % (AUTO) 10.1 % (21-51); MEAN CORPUSCULAR HEMOGLOBIN 28.8 PG (27.0-31.0); MEAN CORPUSCULAR HGB CONC 32.8 g/dL (33.0-36.5); MEAN CORPUSCULAR VOLUME 87.7 FL (78-98); MEAN PLATELET VOLUME 7.3 FL (7.4-10.4); MONOCYTES # (AUTO) 1.2 X10'3 (0-0.9); MONOCYTES % (AUTO) 6.6 % (2-12); NEUTROPHILS # (AUTO) 14.5 X10'3 (1.8-7.7); NEUTROPHILS % (AUTO) 81.4 % (42-75); PLATELET COUNT 504 X10'3 (140-440); RED BLOOD COUNT 3.63 X10'6 (4.70-6.10); RED CELL DISTRIBUTION WIDTH 13.6 % (11.5-14.5); WHITE BLOOD COUNT 17.8 X10'3 (4.5-11.0)
[2019-01-17] MEDS ORDERED: VANCOMYCIN LEVEL IV ONE (07:30)
--- NOTE | 2019-01-17 07:39 | NUR ---
PAGER ID: [phone] MESSAGE: GOOD MORNING DR. PICKETT, 4553B/ISABELA FALCON LEVEL 26.4 . CRITICAL. RX IS MAKING THE ADJUSTMENT. JAMISON [id number]. TY.
[2019-01-17] MEDS: folic acid 1mg tablet PO SCH (08:02)
[2019-01-17] MEDS: thiamine 100mg tablet PO SCH (08:02)
[2019-01-17] MEDS: lactobacillus rhamnosus 10,000 MMU CELLS/CAPSULE PO SCH ×2 (08:02→19:15)
[2019-01-17] MEDS: nicotine 14mg patch - 24hr TD SCH (08:03)
[2019-01-17] MEDS: enoxaparin 40mg/0.4ml syringe SUBCUT SCH (08:03)
[2019-01-17] MEDS ORDERED: pneumococcal 23-VAL P-sac vacc 25 mcg/0.5ml vial IMVAC ONE (10:00)
[2019-01-17 11:00] VITALS: BP 94/51
[2019-01-17 15:00] VITALS: BP 109/63
[2019-01-17 18:00] VITALS: BP 116/73
--- NOTE | 2019-01-17 18:30 | NUR ---
Patient in room PCU 3013. I have received report from ABHINAV Jarrell and had the opportunity to ask questions and assume patient care. Patient is in ISO for lice and is sitting comfortably in bedside chair eating dinner. He is A&O x4,RAJPUT and is appropriate. He had an I&D of his right foot, I will continue to monitor.
--- NOTE | 2019-01-17 18:43 | NUR ---
Problems reprioritized. Patient report given, questions answered & plan of care reviewed with ABHINAV SAMPSON.
--- NOTE | 2019-01-17 18:43 | NUR ---
SENIOR ENGINEERING ASSOCIATEclinical documentation clerk: I have reviewed and agree with all interventions, assessments performed and documented by ABHINAV FIGUEROA.
[2019-01-17] MEDS: HYDROcodone/acetaminophen 5mg/325mg tablet PO PRN (19:29)
[2019-01-17 22:00] VITALS: BP 115/65
[2019-01-18] MEDS: vancomycin/NS 1 GM ADD-VANTAGE 250 ML IV SCH ×2 (01:38→09:03)
[2019-01-18 04:00] VITALS: BP 102/53
[2019-01-18] MEDS: piperacillin/tazo 4.5gm/100ml 100 ML IV SCH ×3 (04:20→19:46)
[2019-01-18 06:00] VITALS: BP 123/69
--- NOTE | 2019-01-18 06:20 | NUR ---
Patient in room PCU 3013. I have received report from Shasta LA and had the opportunity to ask questions and assume patient care.
--- NOTE | 2019-01-18 06:29 | NUR ---
Problems reprioritized. Patient report given, questions answered & plan of care reviewed with ABHINAV Londono.
--- NOTE | 2019-01-18 06:33 | NUR ---
Patient in room PCU 3013. I have received report from ABHINAV DOE and had the opportunity to ask questions and assume patient care.
[2019-01-18 07:20] LABS: BASOPHILS % (AUTO) 0.4 % (0-1); EOSINOPHILS # (AUTO) 0.3 X10'3 (0-0.9); EOSINOPHILS % (AUTO) 2.8 % (0-6); HEMATOCRIT 33.8 % (42.0-52.0); HEMOGLOBIN 11.2 g/dl (14.0-17.9); LYMPHOCYTES # (AUTO) 1.4 X10'3 (1.1-4.8); LYMPHOCYTES % (AUTO) 12.4 % (21-51); MEAN CORPUSCULAR HGB CONC 33.2 g/dL (33.0-36.5); MEAN CORPUSCULAR VOLUME 87.3 FL (78-98); MEAN PLATELET VOLUME 6.9 FL (7.4-10.4); MONOCYTES # (AUTO) 0.5 X10'3 (0-0.9); MONOCYTES % (AUTO) 4.8 % (2-12); NEUTROPHILS # (AUTO) 8.9 X10'3 (1.8-7.7); NEUTROPHILS % (AUTO) 79.6 % (42-75); PLATELET COUNT 509 X10'3 (140-440); RED BLOOD COUNT 3.87 X10'6 (4.70-6.10); RED CELL DISTRIBUTION WIDTH 13.6 % (11.5-14.5); WHITE BLOOD COUNT 11.2 X10'3 (4.5-11.0)
[2019-01-18 07:32] LABS: ALBUMIN 1.5 G/DL (3.4-5.0); ANION GAP 6 (8-16); BLOOD UREA NITROGEN 18 MG/DL (7-18); BUN/CREATININE RATIO 18.8 (5.4-32.0); CALCIUM 8.2 MG/DL (8.5-10.1); CHLORIDE 105 MMOL/L (99-107); CREATININE 0.96 MG/DL (0.60-1.10); GLUCOSE 104 MG/DL (70-104); SODIUM 136 MMOL/L (135-145); TOTAL CARBON DIOXIDE 25.5 MMOL/L (24-32); eGFR 80 ML/MIN
[2019-01-18] MEDS: folic acid 1mg tablet PO SCH (09:02)
[2019-01-18] MEDS: nicotine 14mg patch - 24hr TD SCH (09:03)
[2019-01-18] MEDS: lactobacillus rhamnosus 10,000 MMU CELLS/CAPSULE PO SCH ×2 (09:03→19:46)
[2019-01-18] MEDS: thiamine 100mg tablet PO SCH (09:03)
[2019-01-18] MEDS: enoxaparin 40mg/0.4ml syringe SUBCUT SCH (09:04)
[2019-01-18] MEDS: normal saline 1000ml 1,000 ML IV SCH ×2 (09:25→19:46)
[2019-01-18 11:00] VITALS: BP 119/42
[2019-01-18 18:00] VITALS: BP 143/83
--- NOTE | 2019-01-18 18:38 | NUR ---
Problems reprioritized. Patient report given, questions answered & plan of care reviewed with ABHINAV REY.
--- NOTE | 2019-01-18 18:39 | NUR ---
DIRECTOR HEALTHdocumentation designer: I have reviewed and agree with all interventions, assessments performed and documented by ABHINAV FIGUEROA.
[2019-01-18] MEDS: HYDROcodone/acetaminophen 10/325mg tab PO PRN (19:46)
[2019-01-18 22:31] VITALS: BP 120/57
[2019-01-19] MEDS: HYDROcodone/acetaminophen 10/325mg tab PO PRN (00:19)
[2019-01-19] MEDS ORDERED: VANCOMYCIN LEVEL IV ONE (00:30)
[2019-01-19 02:00] VITALS: BP 113/63
[2019-01-19] MEDS: piperacillin/tazo 4.5gm/100ml 100 ML IV SCH ×2 (03:34→13:31)
[2019-01-19] MEDS: normal saline 1000ml 1,000 ML IV SCH ×2 (04:41→15:25)
[2019-01-19 06:00] VITALS: BP 125/70
--- NOTE | 2019-01-19 06:25 | NUR ---
Patient in room PCU 3013. I have received report from ABHINAV Bailey and had the opportunity to ask questions and assume patient care.
[2019-01-19 06:59] LABS: BASOPHILS # (AUTO) 0.1 X10'3 (0-0.2); BASOPHILS % (AUTO) 0.7 % (0-1); EOSINOPHILS # (AUTO) 0.3 X10'3 (0-0.9); EOSINOPHILS % (AUTO) 2.8 % (0-6); HEMATOCRIT 32.3 % (42.0-52.0); HEMOGLOBIN 10.6 g/dl (14.0-17.9); LYMPHOCYTES # (AUTO) 1.6 X10'3 (1.1-4.8); LYMPHOCYTES % (AUTO) 15.5 % (21-51); MEAN CORPUSCULAR HEMOGLOBIN 28.7 PG (27.0-31.0); MEAN CORPUSCULAR HGB CONC 32.9 g/dL (33.0-36.5); MEAN CORPUSCULAR VOLUME 87.3 FL (78-98); MEAN PLATELET VOLUME 6.8 FL (7.4-10.4); MONOCYTES # (AUTO) 0.8 X10'3 (0-0.9); MONOCYTES % (AUTO) 8.1 % (2-12); NEUTROPHILS # (AUTO) 7.6 X10'3 (1.8-7.7); NEUTROPHILS % (AUTO) 72.9 % (42-75); PLATELET COUNT 540 X10'3 (140-440); RED CELL DISTRIBUTION WIDTH 13.8 % (11.5-14.5); WHITE BLOOD COUNT 10.5 X10'3 (4.5-11.0)
[2019-01-19 07:16] LABS: ALBUMIN 1.6 G/DL (3.4-5.0); ANION GAP 5 (8-16); BLOOD UREA NITROGEN 18 MG/DL (7-18); BUN/CREATININE RATIO 19.4 (5.4-32.0); CALCIUM 8.6 MG/DL (8.5-10.1); CHLORIDE 107 MMOL/L (99-107); CREATININE 0.93 MG/DL (0.60-1.10); GLUCOSE 99 MG/DL (70-104); POTASSIUM 4.3 MMOL/L (3.5-5.1); SODIUM 138 MMOL/L (135-145); TOTAL CARBON DIOXIDE 26.4 MMOL/L (24-32); eGFR 83 ML/MIN
[2019-01-19] MEDS: thiamine 100mg tablet PO SCH (08:26)
[2019-01-19] MEDS: folic acid 1mg tablet PO SCH (08:26)
[2019-01-19] MEDS: lactobacillus rhamnosus 10,000 MMU CELLS/CAPSULE PO SCH (08:26)
[2019-01-19] MEDS: nicotine 14mg patch - 24hr TD SCH (08:27)
[2019-01-19] MEDS: enoxaparin 40mg/0.4ml syringe SUBCUT SCH (08:28)
--- NOTE | 2019-01-19 10:05 | NUR ---
PAGER ID: [phone] MESSAGE: [id number] Alfredo Woodards his dressing is undone and is ready for you to look at. ABHINAV Bee Ext [phone]
[2019-01-19 11:00] VITALS: BP 132/67
[2019-01-19] MEDS ORDERED: CLIN300C3 PO (12:03)
[2019-01-19] MEDS ORDERED: HYDR-3972 PO (12:03)
[2019-01-19] MEDS ORDERED: thiamine tablet PO (12:03)
[2019-01-19 15:00] VITALS: BP 151/73
--- NOTE | 2019-01-19 15:41 | NUR ---
Patients ride home unable to get here to around 1730 to 1800 according to Philip healy is picking patient up. Also Dr. Mac said to keep him until Dr Uribe gives her an ID recommendation.
--- NOTE | 2019-01-19 18:21 | NUR ---
PAGER ID: [phone] MESSAGE: [id number] Alfredo Lianna on the Clindamycin did you want a quantity of 28 or 56 (q6hr for 14days)? ABHINAV Bee Ext [phone]
--- NOTE | 2019-01-19 18:33 | NUR ---
Discharged. IV and tele DC'd. Stable per MD for DC. Educated on meds, follow-up and abscess. Meds called into [facility] in [place].
== END 2019-01-19 18:11 | disposition home or self-care (01) | DRG 720 ==
LOC: ER 17:54 → ED HOLD 21:25 → PCU 3S 01-16 07:45
PROVIDERS: ADMIT Hospitalist; ATTEND Internal Medicine
PROC: 0H9MXZZ Drainage of Right Foot Skin, External Approach (ICD-10-PCS; principal; 2019-01-16 09:30)
PROC: 3E0234Z Introduction of Serum, Toxoid and Vaccine into Muscle, Percutaneous Approach (ICD-10-PCS; 2019-01-17)
DX: A41.9 Sepsis, unspecified organism (principal); L03.115 Cellulitis of right lower limb; F10.10 Alcohol abuse, uncomplicated; F17.200 Nicotine dependence, unspecified, uncomplicated; B95.4 Other streptococcus as the cause of diseases classified elsewhere; L02.611 Cutaneous abscess of right foot; L02.612 Cutaneous abscess of left foot; R65.20 Severe sepsis without septic shock; Z59.0 Homelessness; Z23 Encounter for immunization; Z89.431 Acquired absence of right foot; Z71.41 Alcohol abuse counseling and surveillance of alcoholic
CPT/HCPCS: 36415; 71045; 73630; 73701; 80048; 80053; 80202; 81001; 82948; 83605; 84145; 85025; 85610; 85651; 85730; 86140; 87040; 87070; 87075; 87077; 87102; 87186; 93970; 96365; 96368; 97116; 97162; 97530; 99285; A6222; A6449; A7000; G0378; J1650; J2001; J2175; J2250; J2543; J2704; J3010; J3370; J3490; J7030; J7120; Q9967